=== PATIENT | male | born 1940 | race Caucasian/White ===

== ENCOUNTER 2023-11-18 23:41 | Emergency (ER) | payer OTHER ==
[~2023-11-18] VITALS: Ht 172.7 cm; Wt 79.5 kg
[2023-11-19 00:17] VITALS: TEMP 98.4
[2023-11-19] MEDS: BACITRACIN 0.9 GM PACKET OINTMENT TP ONE (03:53)
[2023-11-19] MEDS: ACETAMINOPHEN/CODEINE 300-30 MG TABLET PO ONE (03:53)
[2023-11-19] MEDS: PERTUSS(ACELL),DIPH,TET/PF 0.5 ML SYRINGE [ADULT] IM. ONE (03:54)
[2023-11-19 06:14] VITALS: BP 149/90; PULSE 70; RESP 16
== END 2023-11-19 06:17 | disposition home or self-care (01) ==
LOC: EMS 23:41
DX: S01.81XA Laceration without foreign body of other part of head, initial encounter (principal); S40.012A Contusion of left shoulder, initial encounter; J44.9 Chronic obstructive pulmonary disease, unspecified; E78.00 Pure hypercholesterolemia, unspecified; I10 Essential (primary) hypertension; Y04.8XXA Assault by other bodily force, initial encounter; Y93.89 Activity, other specified; Y92.89 Other specified places as the place of occurrence of the external cause; Y99.8 Other external cause status
CPT/HCPCS: 70450; 72125; 90471; 90715; 99285